=== PATIENT | male | born 1995 | race Caucasian/White ===

== ENCOUNTER 2021-02-03 10:32 | Emergency (ER) | payer SELFPAY ==
[~2021-02-03] VITALS: Ht 182.9 cm; Wt 91.8 kg
== END 2021-02-03 12:00 | disposition home or self-care (01) ==
LOC: ED 10:32
DX: S43.101A Unspecified dislocation of right acromioclavicular joint, initial encounter (principal); W19.XXXA Unspecified fall, initial encounter
CPT/HCPCS: 73030; 99283